=== PATIENT | female | born 1950 | race Caucasian/White ===

== ENCOUNTER → 2016-11-21 | Outpatient (CLI) | payer OTHER ==
--- NOTE | 2016-11-21 15:15 | MA ---
Screening Digital Mammogram Clinical Indications: Routine screening. Post implant removal. Technique: Standard cephalocaudal and mediolateral oblique projections are obtained. This examinati on is processed by the [employer] computer aided detection system. Comparison: March 2015, March 2014, April 2012 and April 2011 Breast density: B; There are scattered fibroglandular densities. Findings: CAD was reviewed. No suspicious findings are identified. Impression: Negative mammogram. . BI-RADS 1. Recommendation: Routine screening is recommended in one year. [facility] will send a result letter to the patient. Negative mammography should not preclude additional workup of a clinically suspicious finding. The patient's information is entered into a reminder system with a target due date for her next mammo gram.
== END ==
LOC: BMCIMAGING 14:27
DX: Z12.31 Encounter for screening mammogram for malignant neoplasm of breast (principal)
CPT/HCPCS: G0202

== ENCOUNTER → 2017-08-20 | Outpatient (CLI) | payer OTHER | LOC: BMCIMAGING 10:34 | PROVIDERS: ATTEND Physician Assistant Medical | DX: Z13.820 Encounter for screening for osteoporosis (principal) ==

== ENCOUNTER → 2017-12-13 | Outpatient (CLI) | payer OTHER | LOC: BMCIMAGING 13:46 | PROVIDERS: ATTEND Physician Assistant Medical | DX: Z12.31 Encounter for screening mammogram for malignant neoplasm of breast (principal) ==

== ENCOUNTER → 2018-12-16 | Outpatient (CLI) | payer OTHER | LOC: BMCIMAGING 12:49 | PROVIDERS: ATTEND Physician Assistant Medical | DX: Z12.31 Encounter for screening mammogram for malignant neoplasm of breast (principal) ==